=== PATIENT | female | born 1990 | race Hispanic/Latino ===

== ENCOUNTER 2022-07-02 06:53 | Inpatient (IN) | payer SELFPAY ==
[2022-07-02] VITALS (37 sets, daily range): BP systolic 96–140; BP diastolic 54–85; PULSE 63–214; RESP 12–16; TEMP 36.1–37.2; O2SAT 80–100; BMI 28.9
[2022-07-02] MEDS: LACTATED RINGERS 500 ML 999 ML IV (08:00)
[2022-07-02 08:06] LABS: Absolute Lymphocyte Count 1.98 X10^3/uL (0.83-4.51); Absolute Neutrophil Count 3.9 X10^3/uL (2.0-7.7); Basophil# 0.01 X10^3/uL; Basophil% 0.2 % (0-1); Eosinophils% 1.5 % (0-5); Hematocrit 32.2 % (37-47); Hemoglobin 11.3 g/dL (12.0-15.0); Lymphocyte # 1.98 X10^3/ul (0.83-4.51); Lymphocyte % 29.9 % (19-41); Mean Corp Hgb Conc 35.1 g/dL (32-36); Mean Corpuscular Hgb 31.1 pg (27.0-32.0); Mean Corpuscular Volume 88.7 fL (81-99); Mean Platelet Vol. 10.1 fl (6.2-12.0); Monocyte# 0.66 X10^3/uL; NRBC Flagged by Analyzer 0 % (0-5); Neutrophil # 3.85 X10^3/uL (2.7-7.7); Neutrophil % 57.9 % (47-70); Platelet Count 178 K/mm3 (150-450); RBC Distribution Width CV 13.2 % (11.6-14.6); Red Blood Count 3.63 M/mm3 (4.2-5.4); White Blood Count 6.6 K/mm3 (4.4-11.0)
[2022-07-02] MEDS: Lactated Ringers 1,000 ML 200 ML IV ×3 (08:40→20:04)
[2022-07-02] MEDS: fentaNYL-bupivacaine (epidural) 100 ML BAG EPIDURAL ×2 (08:40→14:30)
[2022-07-02] MEDS: Oxytocin 30 units/NS 500 ml 30 UNITS/500 ML IV.SOLN IV (12:07)
--- NOTE | 2022-07-02 16:53 | PCM.HP.OB ---
HPI - General General Date of Admission: 07/02/22 Date of Service: 07/02/22 Chief Complaint: leaking of fluid HPI Narrative MELBA CHU, is a 32-year-old 1 para 0 at 40-1/7 weeks presents complaining of spontaneous rupture membranes at approximately 2:30 AM. She denied any gross vaginal bleeding or leaking of fluid. She is had some contractions. Estimated weight by ultrasound was 29th percentile at34 weeks. was complicated to date by late care. Maternal Data Information Final MARCIA: 07/01/22 Gestational age: 40 1/7 PFSH PFS Home Medications folic acid 1 mg tablet 1 mg PO DAILY Check with primary doctor 07/02/22 [History Last Taken Unknown] Allergy/AdvReac Type Severity Reaction Status Date / Time No Known Allergies Allergy Verified 07/02/22 06:56 Social History Smoking Status: Never smoker History Elective abortions Hx Para 0 Spontaneous abortions Hx # Term Pregnancies Ectopic pregnancies Hx # Pregnancies Multiple births # of living children ROS Constitutional Constitutional: Denies fatigue, fever(s) or malaise Eyes Eyes: Denies change in vision ENT HEENT: Denies dizziness or headache(s) Cardiovascular Cardiovascular: Denies chest pain, dyspnea or lightheadedness Respiratory/Chest Respiratory/Chest: Denies cough or dyspnea Gastrointestinal Gastrointestinal: Denies change in bowel habits Genitourinary Genitourinary: Denies burning urination or genital lesions Integumentary Integumentary: Denies rash Neurologic Neurologic: Denies confusion, dizziness, headache(s), numbness or weakness Vital Signs Vital Signs Vital Signs: 07/02/22 06:47 07/02/22 06:47 07/02/22 06:47 Temperature Temperature Source Pulse Rate 214 H Blood Pressure 123/78 H BP Systolic 123 BP Diastolic 78 Pulse Ox 83 07/02/22 06:47 07/02/22 06:47 07/02/22 06:47 Temperature 97.0 F L Temperature Source Temporal Pulse Rate 69 Blood Pressure BP Systolic BP Diastolic Pulse Ox 07/02/22 08:30 07/02/22 08:30 07/02/22 08:31 Temperature Temperature Source Pulse Rate 88 84 Blood Pressure 116/85 H BP Systolic 116 BP Diastolic 85 Pulse Ox 07/02/22 08:31 07/02/22 08:36 07/02/22 08:36 Temperature Temperature Source Pulse Rate 68 Blood Pressure BP Systolic BP Diastolic Pulse Ox 95 100 07/02/22 08:38 07/02/22 08:38 07/02/22 08:42 Temperature Temperature Source Pulse Rate 69 Blood Pressure 119/69 103/65 BP Systolic 119 103 BP Diastolic 69 65 Pulse Ox 07/02/22 08:42 07/02/22 08:41 07/02/22 08:49 Temperature Temperature Source Pulse Rate 75 77 Blood Pressure BP Systolic BP Diastolic Pulse Ox 99 07/02/22 08:49 07/02/22 08:52 07/02/22 08:52 Temperature Temperature Source Pulse Rate 75 Blood Pressure 113/70 BP Systolic 113 BP Diastolic 70 Pulse Ox 99 07/02/22 08:54 07/02/22 08:54 07/02/22 08:57 Temperature Temperature Source Pulse Rate 75 Blood Pressure 107/69 BP Systolic 107 BP Diastolic 69 Pulse Ox 99 07/02/22 08:57 07/02/22 08:59 07/02/22 08:59 Temperature Temperature Source Pulse Rate 76 69 Blood Pressure BP Systolic BP Diastolic Pulse Ox 99 07/02/22 09:02 07/02/22 09:02 07/02/22 09:04 Temperature Temperature Source Pulse Rate 71 75 Blood Pressure 114/74 BP Systolic 114 BP Diastolic 74 Pulse Ox 07/02/22 09:04 07/02/22 09:07 07/02/22 09:07 Temperature Temperature Source Pulse Rate 71 Blood Pressure 110/75 BP Systolic 110 BP Diastolic 75 Pulse Ox 99 07/02/22 09:09 07/02/22 09:09 07/02/22 10:57 Temperature 97.7 F L Temperature Source Temporal Pulse Rate Blood Pressure 107/66 BP Systolic 107 BP Diastolic 66 Pulse Ox 07/02/22 10:57 07/02/22 10:57 07/02/22 12:06 Temperature Temperature Source Pulse Rate 79 Blood Pressure 115/72 BP Systolic 115 BP Diastolic 72 Pulse Ox 98 07/02/22 12:06 07/02/22 12:07 07/02/22 12:07 Temperature Temperature Source Pulse Rate 67 66 Blood Pressure BP Systolic BP Diastolic Pulse Ox 99 07/02/22 13:46 07/02/22 13:46 07/02/22 13:46 Temperature Temperature Source Pulse Rate 75 Blood Pressure 96/56 L BP Systolic 96 BP Diastolic 56 Pulse Ox 97 07/02/22 13:49 07/02/22 13:49 07/02/22 14:42 Temperature Temperature Source Temporal Pulse Rate 63 Blood Pressure BP Systolic BP Diastolic Pulse Ox 80 07/02/22 14:42 07/02/22 14:42 07/02/22 14:42 Temperature 97.9 F Temperature Source Pulse Rate 66 Blood Pressure 99/62 BP Systolic 99 BP Diastolic 62 Pulse Ox 07/02/22 16:39 07/02/22 16:39 Temperature 98.0 F Temperature Source Temporal Pulse Rate Blood Pressure BP Systolic BP Diastolic Pulse Ox Weight Weight: 60.691 kg Body Mass Index (BMI) 28.9 Physical Exam Const alert and no apparent distress General Appearance: cooperative HEENT normocephalic Resp normal respiratory effort Cardio regular rate GI soft to palpation GI Narrative: gravid, nontender, appropriate for gestational age Extremity no calf tenderness General Extremity: edema Skin no wounds Rashes: No rashes noted Psych activity/motor behavior normal Labs Labs Labs: Blood Type O POSITIVE Antibody Screen NEGATIVE Hct 32.2 % (37-47) L Hgb 11.3 g/dL (12.0-15.0) L Assessment & Plan (1) 40 weeks gestation of : PLAN: Patient with term premature rupture membranes. Induction of labor with Pitocin. Estimated weight is less than 4000 g clinically and by ultrasound and pelvis clinically adequate to expect vaginal delivery. (2) Primigravida in third trimester: (3) SROM (spontaneous rupture of membranes):
[2022-07-02] MEDS: Ondansetron 4 MG/2 ML Vial IV (20:04)
[2022-07-02] MEDS: 0.9% Saline Lock 10 ML Syringe IV (20:04)
--- NOTE | 2022-07-02 20:21 | NURSING ---
abarca cath placed per silverio ORR on day shift after epidural completed.
[2022-07-02] MEDS: Acetaminophen 500 MG Tablet PO (21:45)
[2022-07-02] MEDS: Sodium Citrate/Citric Acid 30 ML UDC PO (21:45)
[2022-07-02] MEDS: Cefazolin 2 GM in 0.9% Normal Saline 100 ML IV (21:58)
--- NOTE | 2022-07-02 22:42 | EX.PCM.OBRPT ---
Assessment & Plan (1) SROM (spontaneous rupture of membranes): (2) Primigravida in third trimester: (3) 40 weeks gestation of : (4) Arrest of descent, delivered, current hospitalization: (5) CPD (cephalo-pelvic disproportion): Maternal Data Information Final MARCIA: 07/01/22 Gestational age: 40 1/7 Details Operative Information Date of Procedure: 07/02/22 Pre-Operative Diagnosis: arrest of descent, failed trial of vacuum Post-Operative Diagnosis: same Classification: DEANNE Procedure Type: low transverse records management director #1: Nohelia Valenzuela records management director #2: DEVLIN M3 Type of Anesthesia: Epidural Anesthesiologist: Libertad Reed Special Medications: duramorph Antibiotic Given: Ancef 2 grams IV x1 and Zithromax 500 mg/5 mL X1 Drain: Cotto to straight drain Estimated Blood Loss: 800 Fluids Replaced: 1000 Procedure Start Time: 22:13 Procedure Stop Time: 22:53 Time of Delivery: 22:15 Findings Description of Procedure: The patient was complete since approximately 5 PM. She was allowed to labor down. We then initiated pushing. The patient had very poor pushing efforts. Despite repeated attempts at coaching she was unable to get the hang of it. The epidural was turned off for a while and the patient did begin to feel more pressure. We used an drapery examiner line and help assistant women's soccer coach the patient and she did begin to push more adequately. Bladder was emptied via Cotto catheter, pelvis was clinically adequate and estimated weight was less than 4000 g clinically. Patient was very exhausted and frustrated. She was plus 3 out of 5 station and DOYLE position. With the drapery examiner line and the patient's partner present I discussed risk benefits and alternatives to trial of vacuum-assisted delivery. Their questions were answered and they agreed to proceed. The team was assembled and the Kiwi vacuum was placed on the flexion point and 550 mmHg was created. I pulled with 2 contractions and then there was a pop-off. After that time I had difficulty because of the caput and the extensive amount of hair on the infant getting the vacuum to create adequate suction. I then pulled with 3 more contractions, there was a fourth contraction but I did not pull during that contraction because I was repositioning the vacuum when assessing the patient's progress. Was felt that the station had progressed somewhat. There is then another time when the vacuum lost suction but it was not a true pop-off. I then switched to a new vacuum and pulled with 3 more contractions and another pop-off and the attempt was abandoned. I then asked the patient to push with maternal pushing efforts only for 2-3 more contractions and there was significant turtling of the head and station restituted back to +3 to +4 station. At this point I discussed with the patient that I felt she had true CPD and arrested assent and we reviewed risk benefits and alternatives to versus continuing second stage. Patient and her partner elected to proceed with , The patient was taken to the operating room. She was prepped and draped in the dorsal supine position with a leftward tilt. A Pfannenstiel skin incision was made approximately 2 cm above the symphysis pubis and carried through to underlying layer fascia with the scalpel. The fascia was incised incised in the midline and the layers were dissected with blunt dissection. The rectus muscles were in the midline and the peritoneum was entered bluntly. The peritoneal incision was stretched and the bladder blade was placed. The uterine incision was made in a low transverse fashion with the scalpel and extended superiorly and inferiorly with blunt dissection. The suction was broken and with care. The 's head was brought to the incision in the flexed position and delivered without difficulty. The remainder of the was delivered with gentle traction and fundal pressure in the standard fashion. The mouth and nares were bulb suctioned. The cord was clamped and cut as the infant was stimulated. Cord clamping was delayed 30 seconds.. The was handed off to the waiting nursing staff. The placenta was delivered with fundal massage and gentle traction in the standard fashion. The uterus was exteriorized and cleared of all clots and debris. The uterine incision was closed with #1 Vicryl in a running locked fashion. A second layer of the same suture was used in an imbricating fashion. 2 [id number] sutures were needed in the left lateral portion of the uterus in a sinus. The incision was examined and was found to be hemostatic. The uterus was placed back into the peritoneal cavity and hemostasis was again confirmed. The rectus muscles were examined and any bleeding was Bovie cauterized.The surgical teams outer gloves were then changed. The parietal peritoneum and rectus muscles were closed en bloc with an 0 Vicryl running suture. The rectus fascia was examined and any bleeding was Bovie cauterized and the rectus fascia was closed with 1 Vicryl suture in a running standard fashion. The subcutaneous tissue was examining and any bleeding was Bovie cauterized. The subcutaneous tissue was reapproximated with 3-0 Vicryl suture. The skin was closed in a subcuticular fashion by the CORRECTION OFFICER SUPERVISOR with me present in the labor and delivery suite. I performed the remainder of the procedure with assistance. All sponge, lap, and needle counts were correct. The patient was taken to her room for recovery in a stable condition. Presentation: Positive for Vertex Amniotic Membrane Rupture Type: Spontaneous Amniotic Fluid Description: Clear Placental Delivery Description: Expressed Placenta Disposition: [facility] Cord Vessel Description: 3 Vessels Cord Entanglement: None Cord Gases: ABG and VBG Infant A Gender: Male (7 lb 7 oz) (1 minute): 8 (5 minute): 9 Delayed Cord Clamping: Yes Complications Complications: none Admit VTE Documentation VTE Present on Admission: No VTE Mechan Device Prophylaxis: SCD's VTE Pharm Prophylaxis Ordered: No Reason Prophylaxis Not Ordered: Procedure Not Indicated
[2022-07-02] MEDS: Oxytocin 30 units/NS 500 ml 30 UNITS/500 ML IV.SOLN 167 UNITS IV (22:58)
[2022-07-02] MEDS: Ketorolac 30 MG/ML Syringe IV (23:52)
[2022-07-03] VITALS (14 sets, daily range): BP systolic 82–130; BP diastolic 47–74; PULSE 66–91; RESP 12–18; TEMP 36.3–37.2; O2SAT 96–100
[2022-07-03] MEDS: Lactated Ringers 1,000 ML 100 ML IV (01:46)
[2022-07-03 04:44] LABS: Hematocrit 26.8 % (37-47); Hemoglobin 9.3 g/dL (12.0-15.0); Mean Corp Hgb Conc 34.7 g/dL (32-36); Mean Corpuscular Hgb 31.2 pg (27.0-32.0); Mean Corpuscular Volume 89.9 fL (81-99); Mean Platelet Vol. 10.2 fl (6.2-12.0); Platelet Count 172 K/mm3 (150-450); RBC Distribution Width CV 13.2 % (11.6-14.6); RBC Distribution Width SD 43.2 fl (35.1-43.9); Red Blood Count 2.98 M/mm3 (4.2-5.4); White Blood Count 14.5 K/mm3 (4.4-11.0)
[2022-07-03] MEDS: Ketorolac 30 MG/ML Syringe IV ×3 (05:05→20:30)
[2022-07-03] MEDS: Acetaminophen 500 MG Tablet 1000 MG PO ×3 (05:05→18:47)
--- NOTE | 2022-07-03 05:32 | NURSING ---
incentive spirometer reviewed with pt and spouse via tile roofer. pt able to do 5 repetitions getting the meter up to approximately 2200 each time. pt aware she should perform this technique 10x every hour while awake.
--- NOTE | 2022-07-03 08:19 | PCM.PROGNOTE ---
Subjective Subjective patient seen at bedside, doing well. Patient reports good pain control. denies CP, SOB. not passing flatus yet. Cotto still in. Breast feeding well. Objective Data Objective Data Vital Signs: Vital Signs Temp Pulse Resp BP Pulse Ox O2 Del Method 97.5 F L 69 14 90/63 100 Room Air 07/03/22 07:02 07/03/22 07:02 07/03/22 07:02 07/03/22 07:02 07/03/22 07:02 07/03/22 07:02 Oxygen Delivery Method Room Air Weight: 60.691 kg Body Mass Index (BMI) 28.9 Intake & Output: Intake and Output for Last 24 Hours 07/01/22 07/02/22 07/03/22 23:59 23:59 23:59 Intake Total 3084.06 / 3084.06 695.43 / 695.43 Output Total 300 / 300 100 / 100 Balance 2784.06 / 2784.06 595.43 / 595.43 Lab / Micro Data Result Diagrams: 07/03/22 04:40 Labs: Laboratory Results - last 24 hr 07/02/22 06:55: Blood Type O POSITIVE, Antibody Screen NEGATIVE 07/03/22 04:40: WBC 14.5 H, RBC 2.98 L, Hgb 9.3 L, Hct 26.8 L, MCV 89.9, MCH 31.2, MCHC 34.7, RDW Std Deviation 43.2, RDW Coeff of Yung 13.2, Plt Count 172, MPV 10.2 Micro: Microbiology 07/02/22 07:00 Nasal Secretion SARS-CoV-2 Antigen (Rapid) - Final Physical Exam Narrative abd: soft, non distended, fundus firm. Dressing dry and intact. Const alert and oriented x3 General Appearance: cooperative HEENT normocephalic Neck General: normal visual inspection GI soft to palpation and non-distended GI Narrative: Fundus firm Extremity normal to inspection and no calf tenderness Skin no rashes or lesions noted Neuro oriented x3 and CN's II-XII intact bilaterally Psych mental status grossly normal Assessment & Plan Assessment/Plan (1) Delivery by section: PLAN: Plan POD# 1 , Doing well- acute on chronic anemia from blood loss surgery Routine care pain mgmt monitor VS ambulation voiding trial today
--- NOTE | 2022-07-03 10:29 | NURSING ---
During morning assessment, this RN and Maral Shah talked with boot repairer Daryl, ID number [id number] to communicate with patient.
[2022-07-03] MEDS: Senna/Docusate Sodium 1 Tablet PO (11:58)
--- NOTE | 2022-07-03 12:03 | NURSING ---
While communicating with patient at 1130, spoke with repair armature winder helper Johann, [place] [id number].
[2022-07-03] MEDS: LACTATED RINGERS 500 ML 999 ML IV (12:39)
--- NOTE | 2022-07-03 13:00 | NURSING ---
This RN and Maral Shah communicated with pt at 1230 using maintenance operator Eric, ID [id number].
--- NOTE | 2022-07-03 13:32 | NURSING ---
@ [address] ID #[id number], Bernice, used to communitcate during care. pt up in nursery with and observed with infant. pt and emotional and support given. transport care update and questions answered regarding infants care. pt instructed, educated, and goals set in regards to possible discharge tonight. pt verbalized understanding to goals set in order to be discharged from the hospital.
[2022-07-03] MEDS: 0.9% Saline Lock 10 ML Syringe IV (14:51)
--- NOTE | 2022-07-03 17:20 | NURSING ---
This RN communicated with patient around 1450 on 07/03 and used two separate translators during the conversation, 1st one was Alec Blount ID [id number], then spoke with Sabine ID [id number].
--- NOTE | 2022-07-03 18:35 | NURSING ---
This RN spoke with two separate translators to communicate about teaching for care about incision and signs to look for of infection and medical secretary Graciela came in and spoke about the certificate. First rn telephone triage was Romelia ID [id number], second rn telephone triage was Alec ID [id number].
--- NOTE | 2022-07-03 19:00 | NURSING ---
This RN communicated with patient at 1845 on 07/03 and warp starter was Alison ID [id number].
--- NOTE | 2022-07-04 09:45 | CASEMGMT ---
Social Work Assessment Labor and Delivery Unit (late entry for intervention occurring on 07.03.2022) Patient Address: Mailing address-[address] [place] [address] [place] [address]; Residential address-[address] [place] [address] Phone number: [phone]; alternate phone number (father of baby) [phone] Date of Referral: 07/03/2022 Time of Referral: [id number] Referred By: Dr. Leonarda Rowley Date of Intervention: 07/03/2022 Time of Intervention: Approximately 1600 Reason for Referral: PHQ-9 score of 7 History obtained from: Medical records and mother of baby (MOB) Gautam Perez; father of baby (FOB) Kendrick Bravo present for part of conversation. [employer] uses, [employer] Kevin # [id number] Household composition: MOB and FOB live together alone in an apartment. Home situation is reported as safe and adequate. Patient's parent/guardian status: MOB is a 32-year-old single female from [place], and the FOB is also from [place]. MOB has been in the [place] for 1 year in the FOB for 2 years. Parents have been together for 4 years. First child for both. During private conversation with the MOB, MOB denied any type of abuse or safety concern. baby boy is to be named Juaquin Redmond, born 07/02/20[birth year]. Medical History: KE is 1, para 0 now 1 after delivering Juaquin. was unplanned, though accepted. care started at 16 weeks, in part due to finances and insurance. care regular once started. Delivery occurred via primary after failed Kiwi delivery. weighed 7 pounds 6 ounces at with Apgars 8 and 9 at 1 and 5 minutes of life respectively. Infant has since been transferred into the [facility] special care nursery awaiting transport to take to main campus NICU. Per record, concern for Subgaleal hemorrhage and epicranial subaponeurotic hemorrhage due to injury. Educational Status: care record indicates Highest level of education is 6. MOB reports ability to read and write, and denies any issues with reading or understanding in Belgian. Financial Status: MOB does not work outside of the home. FOB is full-time employed called [employer] in [place], [place]. FOB denies any concerns with ability to meet bills or finances at this point. Supplies: MOB and FOB report to have necessary supplies for the baby such as a car seat, safe sleep space, clothing, diapers, wipes. MOB is hoping to be able to provide breastmilk. department working with the MOB on a breast pump through [facility]. Childcare/Caregiver(s): MOB and FOB. Transportation: FOB drives and assist MOB with getting to appointments. Programs/Agencies Involved: No current agency involvement prior to hospitalization. Family is currently self-pay. Unclear whether the family has any type of documentation for residency. Educated to Medicaid for the infant, WIC, and help me grow. Behavioral Health Issues: Mental Health History: MOB denies any prior history of depression, anxiety, or any emotional health issues. Denies any type of history regarding suicide or self-harm. MOB score on the PHQ-9 is 7 which falls into the mild range of depression. Identified symptoms included little interest or pleasure in doing things, feeling down, difficulty sleeping and poor energy. Despite identifying the symptoms, MOB denies feeling depressed. Does indicate some sadness however with what is happening with her baby. Substance Use History: MOB denies any history of or current concerns with alcohol or drugs. FOB also denies any history of such. Drug Screens: No drug screens noted within the care or current medical records. Family/Social Stressors: Unplanned planning though accepted, difficult delivery ending up in section with baby being transferred to [facility] NICU. Language barrier with primary language. Current self-pay status. Limited support system. Support Systems: MOB and FOB both indicate limited support system outside of each other. Depression/Shaken Baby/Safe Sleeping: Information provided on safe sleeping, shaken baby prevention, and depression/anxiety/psychosis. Reviewed risk factors with the MOB and the FOB, also broaching that fathers can develop mood complications as well. ASSESSMENT: Met with the MOB alone, introducing to self and social work role in Belgian, then using the real estate office supervisor services to reintroduce self and complete social work assessment. During time alone with the MOB was able to broach topics of domestic violence and ensure topic of depression was okay to speak about in front of the FOB. FOB did arrive midway through conversation and participated in conversation upon his arrival. Both MOB and FOB appeared sad, with the FOB appearing teary-eyed and the MOB intermittently crying. Both parents were cooperative, polite, and willing to engage in conversation. Both expressed receptivity to community resources. Agreeable to a help me grow referral. Accepted Medicaid application written in Belgian as well as a [facility] resource list written in both Belgian and Kiswahili. Educated that there will be social work available at [facility] for support and resource needs. This loan underwriter did review the PHQ-9, and despite the indications of mild depression MOB denies feeling depressed, outside of being sad about current situation with baby. No history of self harm or suicidal ideation/intent/action. Did review risk for depression and importance of letting healthcare providers know if concerns arise. Reinforced that mood complications can happen to anybody and is not a reflection on being a good parent, but important for self-care as continuing to parent. Emotional support and encouragement provided. Asked several times whether the parents had any questions, concerns, or additional things that this loan underwriter could assist with. Neither parent identified any additional concerns at this point. PLAN: Baby has been discharged already to [facility], and the MOB will be discharged later this evening. Resources given in Belgian for [facility], information on mood and anxiety disorders given. Help me grow referral will be made. No other services requested or indicated. -CAMILA Dunbar MSW *This note was generated with Octonius dictation software. It may contain incorrect words, spelling, and punctuation that were not noted in review of the chart prior to signing*
--- NOTE | 2022-07-04 10:21 | CASEMGMT ---
Social Work Labor and Delivery unit Help me grow referral submitted through the [facility] assisted care web-based referral system. No other services requested or indicated. -JR Dunbar, CRITICAL CARE CLINICAL NURSE SPECIALIST. *This note was generated with [employer] dictation software. It may contain incorrect words, spelling, and punctuation that were not noted in review of the chart prior to signing*
== END 2022-07-03 22:05 | disposition home or self-care (01) | DRG 787 ==
LOC: WPOUT 06:53 → WP 06:53
PROVIDERS: Obstetrics & Gynecology; Admitting Provider Obstetrics & Gynecology; Visit Provider Obstetrics & Gynecology
DX: O62.1 Secondary uterine inertia (principal); D62 Acute posthemorrhagic anemia; O99.02 Anemia complicating childbirth; Z37.0 Single live birth; Z3A.40 40 weeks gestation of pregnancy; O66.5 Attempted application of vacuum extractor and forceps
CPT/HCPCS: 59025; 59050; 85025; 85027; 86850; 86900; 86901; 87426; 99218; J7120; A4216; G0378; J2405